=== PATIENT | male | born 1960 | race African-American/Black ===

== ENCOUNTER → 2017-02-03 | Outpatient (CLI) | payer BC ==
[~2017-02-03] MED LIST: ATORVASTATIN; AVAPRO PO; CEPHALEXIN500 M1 PO; CIPRO 500MG TA500 MG PO; GLUCOPHAGE PO; GLUCOTROL10 MG PO; LANTUS SQ; LORTAB 5/500 501 TAB PO; PERCOCET 5/321 UDTAB PO; PRINIVIL20 MG PO; SIMVASTATIN10 MG PO; [UNRECOGNIZED DRUG - OTHER]
== END ==
LOC: COL.RAD 09:01
DX: S73.191A Other sprain of right hip, initial encounter (principal); M25.851 Other specified joint disorders, right hip; M25.451 Effusion, right hip
CPT/HCPCS: A9585; Q9967

== ENCOUNTER 2017-04-14 21:13 | Emergency (ER) | payer BC ==
[~2017-04-14] VITALS: Ht 182.9 cm; Wt 111.4 kg
[~2017-04-14 21:13] MED LIST changes: -GLUCOTROL10 MG PO; -PRINIVIL20 MG PO
[2017-04-14 21:22] VITALS: TEMP 96.9
[2017-04-14] MEDS ORDERED: GLUCOTROL10 MG PO (21:35)
[2017-04-14] MEDS ORDERED: PRINIVIL20 MG PO (21:36)
[2017-04-14 22:32] LABS: BASO % 0.4 % (0.0-2.0); EOS # 0.3 (0.0-0.7); EOS % 4.3 % (0-4.0); GRAN # 4.1 (1.4-6.5); GRAN % 59.2 % (42.2-75.2); HEMATOCRIT 43.5 % (42.0-52.0); HEMOGLOBIN 14.9 g/dl (13.5-18.0); LYMPH # 1.9 (1.2-3.4); MEAN CELL VOLUME 84 fl (80.0-100.0); MEAN CORPUSCULAR HEMOGLOBIN 29 pg (27.0-31.0); MEAN CORPUSCULAR HGB CONC 34 g/dl (33.0-37.0); MEAN PLATELET VOLUME 9.8 fl (7.4-10.4); MONO # 0.5 (0.1-0.6); MONO % 7.7 % (1.7-9.3); PLATELET COUNT 186 K/mm3 (130-400); RED BLOOD COUNT 5.16 M/mm3 (4.20-5.60); REDCELL DISTRIBUTION WIDTH-CV 13.1 % (11.5-14.5); WHITE BLOOD COUNT 6.9 K/mm3 (4.8-10.8)
[2017-04-14 22:40] LABS: PROTHROMBIN TIME 11.5 SECONDS (9.7-12.8)
[2017-04-14 22:43] LABS: PARTIAL THROMBOPLASTIN TIME 30.5 SECONDS (26.0-37.0)
[2017-04-14 22:44] LABS: ADJUSTED CALCIUM 9.1 mg/dL (8.4-10.2); ALBUMIN 3.9 gm/dL (3.5-5.0); BILIRUBIN,TOTAL 1.2 mg/dL (0.0-1.0); CREATININE, serum 1.67 mg/dL (0.66-1.25); POTASSIUM 4.7 mmol/L (3.4-5.0); TOTAL PROTEIN 6.8 gm/dL (6.4-8.2)
[2017-04-14 22:55] LABS: TROPONIN-I 0.015 ng/mL (0.000-0.034)
[2017-04-15] VITALS: BP 128/88; PULSE 88
== END 2017-04-15 00:25 | disposition home or self-care (01) ==
LOC: COL.ER 21:13
PROVIDERS: Emergency Medicine
DX: R07.9 Chest pain, unspecified (principal); M25.511 Pain in right shoulder; E78.5 Hyperlipidemia, unspecified; E11.22 Type 2 diabetes mellitus with diabetic chronic kidney disease; I12.9 Hypertensive chronic kidney disease with stage 1 through stage 4 chronic kidney disease, or unspecified chronic kidney disease; N18.9 Chronic kidney disease, unspecified; Z87.891 Personal history of nicotine dependence; Z79.4 Long term (current) use of insulin; Z79.84 Long term (current) use of oral hypoglycemic drugs
CPT/HCPCS: J1885; J2270; J7030

== ENCOUNTER → 2017-05-28 | Outpatient (CLI) | payer BC ==
[~2017-05-28] MED LIST changes: +GLUCOTROL10 MG PO; +PRINIVIL20 MG PO
== END ==
LOC: COL.RAD 12:45
DX: Q60.0 Renal agenesis, unilateral (principal); N28.1 Cyst of kidney, acquired

== ENCOUNTER → 2017-09-16 | Outpatient (CLI) | payer BC | LOC: COL.RAD 09-15 07:30 | DX: K82.4 Cholesterolosis of gallbladder (principal) ==

== ENCOUNTER → 2018-01-28 | Outpatient (CLI) | payer OTHER | LOC: COL.RAD 14:44 | DX: M99.71 Connective tissue and disc stenosis of intervertebral foramina of cervical region (principal); M48.02 Spinal stenosis, cervical region ==

== ENCOUNTER 2020-01-21 09:10 | Outpatient (RCR) | payer OTHER ==
[~2020-01-21 09:10] MED LIST changes: +FLEXERIL 1010 MG/TAB PO; +LIDODERM 5% PATC1 EA TP; +MEDROL 4MG DOSPA4 MG PO; +NORCO 325 MG-7.1 TAB PO
== END 2020-03-09 | disposition home or self-care (01) ==
LOC: WSOH
DX: S16.1XXD Strain of muscle, fascia and tendon at neck level, subsequent encounter (principal); M50.30 Other cervical disc degeneration, unspecified cervical region; S30.0XXD Contusion of lower back and pelvis, subsequent encounter; F43.22 Adjustment disorder with anxiety; V89.0XXD Person injured in unspecified motor-vehicle accident, nontraffic, subsequent encounter; Z90.49 Acquired absence of other specified parts of digestive tract

== ENCOUNTER 2023-07-11 09:46 | Outpatient (RCR) | payer OTHER | END 2023-08-03 | LOC: WSOH | DX: S46.811D Strain of other muscles, fascia and tendons at shoulder and upper arm level, right arm, subsequent encounter (principal); M50.30 Other cervical disc degeneration, unspecified cervical region; I10 Essential (primary) hypertension; E11.9 Type 2 diabetes mellitus without complications; E78.00 Pure hypercholesterolemia, unspecified; N40.0 Benign prostatic hyperplasia without lower urinary tract symptoms; Y99.0 Civilian activity done for income or pay ==